=== PATIENT | female | born 1970 | race African-American/Black ===

== ENCOUNTER 2020-10-06 13:31 | Emergency (ER) | payer OTHER, MEDICAID ==
[~2020-10-06] VITALS: Ht 160 cm; Wt 68.0 kg
[2020-10-06 13:42] VITALS: BP 123/84
[2020-10-07] MEDS ORDERED: AM250 MT (14:32)
[2020-10-07] MEDS ORDERED: TOPUD MT (14:33)
== END 2020-10-06 14:16 | disposition left against medical advice (07) ==
LOC: ER 13:31
DX: Z53.21 Procedure and treatment not carried out due to patient leaving prior to being seen by health care provider (principal)

== ENCOUNTER 2020-10-07 12:18 | Emergency (ER) | payer MEDICAID, OTHER ==
[~2020-10-07] VITALS: Ht 160 cm; Wt 69.0 kg
[2020-10-07 12:22] VITALS: BP 110/76
[2020-10-07] MEDS ORDERED: AMOXICILLIN 500 MG CAPSULE PO ONE (12:45)
[2020-10-07] MEDS ORDERED: ACETAMINOPHEN 325MG TABLET PO ONE (13:00)
[2020-10-07] MEDS ORDERED: AM250 MT (14:32)
[2020-10-07] MEDS ORDERED: TOPUD MT (14:33)
== END 2020-10-07 14:44 | disposition home or self-care (01) ==
LOC: ER 12:31
DX: K04.7 Periapical abscess without sinus (principal); Z98.890 Other specified postprocedural states; Z87.440 Personal history of urinary (tract) infections; Z87.09 Personal history of other diseases of the respiratory system; Z79.899 Other long term (current) drug therapy
CPT/HCPCS: 99283

== ENCOUNTER 2025-02-08 18:30 | Emergency (ER) | payer OTHER ==
[~2025-02-08] VITALS: Ht 162.6 cm; Wt 72.0 kg
[~2025-02-08 18:30] MED LIST: AM250 MT; TOPUD MT
[2025-02-08 18:35] VITALS: O2SAT 99
[2025-02-08 18:51] VITALS: BP 145/87; PULSE 94; RESP 16; TEMP 36.9; O2SAT 100
[2025-02-08 19:30] LABS: BASOPHILS % 0.9 % (0.0-2.0); EOSINOPHILS % 4.5 % (0.0-5.0); HEMATOCRIT. 38.2 % (36.0-48.0); HEMOGLOBIN. 12.9 g/dL (12.0-16.0); LYMPHOCYTES % 37.7 % (20.0-50.0); MEAN PLATELET VOLUME 6.3 fl (7.4-10.4); MONOCYTES % 8.7 % (2.0-8.0); NEUTROPHILS % 48.2 % (40.0-76.0); PLATELET 328 x1000/uL (130-400); RED BLOOD CELL COUNT 3.83 mill/uL (4.2-5.4); RED CELL DISTRIBUTION WIDTH 13.0 % (11.6-14.6)
[2025-02-08 19:46] LABS: CREATININE 1.0 mg/dL (0.6-1.0)
[2025-02-08 19:47] LABS: TROPONIN I HIGH SENSITIVITY < 4 ng/L (3.0-34); UREA NITROGEN BLOOD 16 mg/dL (9-23)
[2025-02-08 19:48] LABS: ASPARTATE AMINOTRANSFERASE 15 IU/L (<34)
[2025-02-08 19:49] LABS: BILIRUBIN DIRECT < 0.1 mg/dL (<=3.0); BILIRUBIN TOTAL 0.5 mg/dL (0.1-1.0); PROTEIN TOTAL 7.2 g/dL (6.0-8.3)
== END 2025-02-08 19:51 | disposition left against medical advice (07) ==
LOC: ER 18:30
DX: R60.0 Localized edema (principal); Z53.21 Procedure and treatment not carried out due to patient leaving prior to being seen by health care provider; Z79.899 Other long term (current) drug therapy
CPT/HCPCS: 36415; 80048; 80076; 83880; 84484; 85025; 93005